=== PATIENT | male | born 1975 | race Caucasian/White ===

== ENCOUNTER 2020-12-20 19:37 | Emergency (ER) | payer SELFPAY ==
[2020-12-20] MEDS ORDERED: fentaNYL 100 MCG/2 ML SDV IM ONE (20:13)
[2020-12-20] MEDS ORDERED: Ondansetron 4 MG Tab.DIS PO ONE (20:13)
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
[2020-12-20] MEDS ORDERED: Heparin Sodium 5,000 Units/ML Vial IVPUSH ONE (22:24)
[2020-12-20] MEDS ORDERED: Sodium Chloride 0.9% 1,000 ML IV SCH (22:30)
[2020-12-20] MEDS ORDERED: Heparin Sodium/D5W 25,000 UNITS/500 ML BAG IV SCH (22:30)
--- NOTE | 2020-12-20 23:15 | CRLUS ---
INDICATION: Right leg pain and edema. Elevated D-dimer TECHNIQUE: Ultrasound venous duplex lower right extremity. Compression venous exam was performed using chairez-scale, color Doppler, and spectral Doppler imaging. COMPARISON: None available FINDINGS: There is diffuse occlusive venous thrombosis throughout the right lower extremity, involving the right common femoral, femoral, popliteal, posterior tibial and peroneal veins, as well as the visualized deep femoral vein and the majority of the greater saphenous vein. Soft tissue edema is noted. IMPRESSION: Diffuse deep venous thrombosis throughout the right lower extremity. Superficial thrombophlebitis involving the majority of the greater saphenous vein. The findings were discussed with Officer, by phone, on 12/20/2020 at 11:10 p.m.. Dictated by Torey Amin MD @ 12/20/2020 11:13:43 PM Dictated by: Torey Amin MD @ 12/20/2020 23:13:48 (Electronically Signed)
== END 2020-12-20 22:45 | disposition left against medical advice (07) ==
LOC: JP.ED 19:37
DX: I82.411 Acute embolism and thrombosis of right femoral vein (principal); E11.9 Type 2 diabetes mellitus without complications; Z72.0 Tobacco use; Z88.6 Allergy status to analgesic agent; Z79.899 Other long term (current) drug therapy; Z79.4 Long term (current) use of insulin
CPT/HCPCS: 36415; 80048; 82009; 84484; 85025; 85379; 93971; 96372; 99285; A9270; J3010